=== PATIENT | female | born 1980 | race African-American/Black ===

== ENCOUNTER 2022-06-27 23:43 | Emergency (ER) | payer MEDICAID ==
[~2022-06-27] VITALS: Ht 157.5 cm; Wt 51.8 kg
[2022-06-27 23:54] VITALS: BP 121/89
[2022-06-28] MEDS: ACETAMINOPHEN 500 MG TABLET PO ONE ×2 (02:10→02:12)
== END 2022-06-28 04:24 | disposition home or self-care (01) ==
LOC: EMS 23:43
DX: S90.112A Contusion of left great toe without damage to nail, initial encounter (principal); F17.210 Nicotine dependence, cigarettes, uncomplicated; X58.XXXA Exposure to other specified factors, initial encounter; Y93.89 Activity, other specified; Y92.89 Other specified places as the place of occurrence of the external cause; Y99.8 Other external cause status
CPT/HCPCS: 99283